=== PATIENT | male | born 1965 | race Caucasian/White ===

== ENCOUNTER 2018-05-11 07:20 | Day surgery (SDC) | payer MEDICARE, MEDICAID ==
[~2018-05-11 07:20] MED LIST: Lactated Ringers 1,000 ML IV SCH
[2018-05-11] MEDS ORDERED: Propofol 200 MG/20 ML SDV ONE (08:31)
[2018-05-11] MEDS ORDERED: Ketorolac 30 MG/ML SDV ONE (08:31)
[2018-05-11] MEDS ORDERED: ceFAZolin 1 GM Vial ONE (08:31)
[2018-05-11] MEDS ORDERED: fentaNYL 100 MCG/2 ML SDV ONE (08:31)
[2018-05-11] MEDS ORDERED: Ondansetron 4 MG/2 ML SDV ONE (08:31)
[2018-05-11] MEDS ORDERED: Midazolam 1 MG/ML 2 ML SDV ONE (08:31)
[2018-05-11] MEDS ORDERED: Bupivacaine 0.25%/EPINEPHrine 1:200,000 30 ML SDV ONE (08:44)
[2018-05-11] MEDS ORDERED: Bupivacaine 0.25%/EPINEPHrine 1:200,000 30 ML SDV INJECT ONE ×2 (09:03)
--- NOTE | 2018-05-11 12:55 | OR ---
PREOPERATIVE DIAGNOSIS: Large symptomatic left hydrocele. POSTOPERATIVE DIAGNOSIS: Large symptomatic left hydrocele. PROCEDURE PROPOSED: Left hydrocelectomy. PROCEDURE DONE: Left hydrocelectomy. BINDERY SUPERVISOR: Jazmine Mercedes. INDICATION: This is a 52-year-old gentleman with a very large symptomatic left hydrocele that comes in now for elective excision. TECHNIQUE: The patient was brought to the operative suite, given a general laryngeal mask anesthetic. The scrotal and genitalia area was trimmed and sterilely prepped and draped. The skin was then locally anesthetized with 0.25% Marcaine with epinephrine in a transverse fashion. The transverse incision was then made directly in the midportion of the scrotum anteriorly, carried down through the subcutaneous tissue through dartos fascia. The hydrocele sac was then dissected free from the surrounding tissue and delivered through the incision. I opened up the hydrocele sac and drained out 750 mL of cloudy fluid. The hydrocele sac was then excised up to the testicle where a small portion was left in situ. The excess of sac and some of the surrounding fascia was removed and submitted for pathologic examination. Hemostasis was assured with cautery and the testicle was placed back into the depths of the scrotum. A 0.25 inch [place] drain was placed and brought out through the medial aspect of the incision. The dartos fascia was then closed with a running 3-0 Vicryl and the skin was closed in a subcuticular fashion with 4-0 Vicryl and a pressure dressing was applied with 4 x 4 fluffs and a mesh underwear holding the dressing in place. He tolerated the procedure well with minimal blood loss and he was recovered nicely and will be followed up in the clinic for drain removal in couple days and also recheck in couple weeks by myself. SCM: 05/11/2018 09:52:07 MODL: 05/11/2018 12:49:15 /[id number]
== END 2018-05-11 15:00 | disposition home or self-care (01) ==
LOC: VM.SDS 07:20
PROVIDERS: ATTEND Surgery
DX: N43.3 Hydrocele, unspecified (principal); Z79.899 Other long term (current) drug therapy; Z88.0 Allergy status to penicillin; Z88.2 Allergy status to sulfonamides; Z88.6 Allergy status to analgesic agent
CPT/HCPCS: 00830; 88302; J0690; J1885; J2250; J2405; J2704; J3010; J7120